=== PATIENT | female | born 1965 | race African-American/Black ===

== ENCOUNTER → 2016-02-19 | Outpatient (CLI) | payer OTHER ==
[~2016-02-19] MED LIST: ALLERGY10 M1 PO; ASPIRIN EC81 M1 PO; CARVEDILOL12.5 MG PO; CLARITIN10 MG PO; COREG CR80 MG PO; COZAAR 50 MG TA50 M1 PO; COZAAR100 MG PO; CRESTOR40 MG PO; CRESTOR5 MG PO; FELODIPINE ER10 MG PO; FISH OIL 1,0001 EAC5 PO; FLAXSEED OIL1000 MG PO; FLONASE 0.05%50 MCG SPRAY; HYDROCODONE-APA1 TA1 PO; LANTUS SUBQ; LOPRESSOR 50 MG50 M1 PO; MICARDIS HCT 81 EAC1 PO; NEXIUM20 M1 PO; NOVOLOG100 UNIT/1 SQ; NOVOLOG100 UNIT/1 SUBQ; PRILOSEC OTC20 MG PO; PROMETHAZINE RECTAL; RENAL VITAMIN PO; RENVELA800 MG PO; ROCALTROL0.25 MCG PO; TOPROL XL50 MG PO; TRIPHROCAPS SOFT1 MG PO; TUMS PO; ULTRAM 50MG TAB50 MG PO; VITAMIN D 5050000 I1; ZOFRAN ODT4 MG PO; ZYRTEC10 M2 PO
== END ==
LOC: RAD 01:39
DX: R92.2 Inconclusive mammogram (principal)

== ENCOUNTER → 2017-04-07 | Outpatient (CLI) | payer OTHER ==
[~2017-04-07] MED LIST changes: +KEFLEX500 M1 PO; +NORCO 5-325 TA1 EACH PO; +ONDANSETRON HCL4 M2 PO
== END ==
LOC: RAD 10:28
DX: Z12.31 Encounter for screening mammogram for malignant neoplasm of breast (principal)

== ENCOUNTER → 2018-11-12 | Outpatient (CLI) | payer OTHER | LOC: RAD 11:13 | DX: Z12.31 Encounter for screening mammogram for malignant neoplasm of breast (principal) ==

== ENCOUNTER → 2019-12-23 | Outpatient (CLI) | payer OTHER | LOC: RAD 10:18 | PROVIDERS: ATTEND Internal Medicine | DX: Z12.31 Encounter for screening mammogram for malignant neoplasm of breast (principal) ==

== ENCOUNTER 2020-05-13 12:39 | Emergency (ER) | payer OTHER ==
[~2020-05-13] VITALS: Ht 165.1 cm; Wt 98.4 kg
[2020-05-13 13:30] LABS: CALCIUM 8.3 mg/dL (8.5-10.1); CREATININE 6.3 mg/dL (0.6-1.0)
[2020-05-13 13:31] LABS: POTASSIUM 4.3 mmol/L (3.5-5.1)
[2020-05-13 13:49] LABS: ABSOLUTE NEUTROPHILS 2.7 thou/uL (1.4-8.2); BASOPHILS 0.9 % (0.0-2.0); HEMATOCRIT 35.6 % (37.0-47.0); HEMOGLOBIN 11.7 gm/dL (12.0-15.0); LYMPHOCYTES 21.8 % (24.0-44.0); MCHC 32.8 g/dL (28.0-37.0); MCV 94.7 fL (80.0-100.0); MONOCYTES 9.7 % (1.0-8.0); PLATELET COUNT 157 thou/uL (150-400); POLYS 67.6 % (36.0-66.0); RBC 3.76 mil/uL (4.20-5.00); RDW 19.3 % (10.5-14.5); WBC 3.9 thou/uL (4.0-11.0)
[2020-05-13] MEDS ORDERED: NORVASC10 MG PO (14:36)
[2020-05-13] MEDS ORDERED: ONDANSETRON HCL4 M2 PO (15:05)
[2020-05-13 15:15] VITALS: BP 142/64
== END 2020-05-13 15:15 | disposition home or self-care (01) ==
LOC: ER 12:39
PROVIDERS: Nurse Practitioner
DX: U07.1 COVID-19 (principal); R11.2 Nausea with vomiting, unspecified; M54.2 Cervicalgia; M54.9 Dorsalgia, unspecified; R51.9 Headache, unspecified; K21.9 Gastro-esophageal reflux disease without esophagitis; E11.22 Type 2 diabetes mellitus with diabetic chronic kidney disease; I12.0 Hypertensive chronic kidney disease with stage 5 chronic kidney disease or end stage renal disease; N18.6 End stage renal disease; Z79.4 Long term (current) use of insulin; Z90.710 Acquired absence of both cervix and uterus; Z79.899 Other long term (current) drug therapy; Z79.82 Long term (current) use of aspirin; Z87.891 Personal history of nicotine dependence; Z88.8 Allergy status to other drugs, medicaments and biological substances

== ENCOUNTER 2020-05-18 05:27 | Emergency (ER) | payer OTHER ==
[~2020-05-18] VITALS: Ht 165.1 cm; Wt 98.9 kg
[~2020-05-18 05:27] MED LIST changes: +NORVASC10 MG PO
[2020-05-18 06:08] LABS: ABSOLUTE NEUTROPHILS 6.4 thou/uL (1.4-8.2); BASOPHILS 0.4 % (0.0-2.0); HEMATOCRIT 32.8 % (37.0-47.0); HEMOGLOBIN 10.6 gm/dL (12.0-15.0); LYMPHOCYTES 16.9 % (24.0-44.0); MCHC 32.4 g/dL (28.0-37.0); MCV 92.8 fL (80.0-100.0); MONOCYTES 6.2 % (1.0-8.0); PLATELET COUNT 207 thou/uL (150-400); POLYS 76.5 % (36.0-66.0); RBC 3.54 mil/uL (4.20-5.00); RDW 19.4 % (10.5-14.5); WBC 8.4 thou/uL (4.0-11.0)
[2020-05-18 06:12] LABS: ANION GAP 15 mmol/L (7-16); BUN 59 mg/dL (7-18); CALCIUM 7.1 mg/dL (8.5-10.1); CHLORIDE 95 mmol/L (98-107); CO2 25 mmol/L (21-32); CREATININE 13.1 mg/dL (0.6-1.0); GLUCOSE 122 mg/dL (74-106); POTASSIUM 4.1 mmol/L (3.5-5.1); SODIUM 135 mmol/L (136-145)
[2020-05-18 06:22] LABS: ALBUMIN 2.9 g/dL (3.4-5.0); LIPASE 412 U/L (73-393); SGOT 35 U/L (15-37); SGPT 31 U/L (14-59); TOTAL BILIRUBIN 0.6 mg/dL (0.2-1.0); TOTAL PROTEIN 7.7 g/dL (6.4-8.2); TROPONIN-I <0.06 ng/mL (<0.06)
[2020-05-18 06:28] LABS: APTT 34.2 Seconds (24.5-32.8); D-DIMER 1.07 ug/mLFEU (0.19-0.50); INR 0.98; PROTIME 10.7 Seconds (9.3-11.4)
--- NOTE | 2020-05-18 07:03 | EKG ---
[address] [place] [address] ELECTROCARDIOGRAM REPORT Name: NGOZI ARDON Room #: PRE M.R.#: [id number] Admission: Attend Phys: Discharge: Date of : 63 Report #: [id number] [facility] ED Test Date: 2020-05-18 Test Time: 05:43:11 Pat Name: NGOZI ARDON Department: Room: Gender: F Building [employer] Professor: MPAJAIME : 1965 Requested By: Skyler Williamson Order Number: [id number] MD: Marcos De Oliveira Measurements Intervals [place] Rate: 77 P: 44 TX: 199 QRS: -21 QRSD: 84 T: 37 QT: 404 QTc: 458 Interpretive Statements Sinus rhythm Left ventricular hypertrophy Baseline wander in lead(s) II,III,aVF,V3 Compared to ECG 09/12/2017 19:59:46 First degree AV block no longer present Electronically Signed On 05-18-2020 7:03:04 CDT by Marcos De Oliveira [email or web address] <ELECTRONICALLY SIGNED> By: Marcos De Oliveira MD, [facility] 05/18/20 [id number] [id number] 2 Marcos De Oliveira MD, FAC /EPI
[2020-05-18 09:15] VITALS: BP 135/78
[2020-05-18] MEDS ORDERED: ZOFRAN ODT4 MG PO (09:26)
== END 2020-05-18 09:24 | disposition home or self-care (01) ==
LOC: ER 05:27
PROVIDERS: Emergency Medicine
DX: U07.1 COVID-19 (principal); R06.00 Dyspnea, unspecified; R11.10 Vomiting, unspecified; I12.0 Hypertensive chronic kidney disease with stage 5 chronic kidney disease or end stage renal disease; E11.22 Type 2 diabetes mellitus with diabetic chronic kidney disease; N18.6 End stage renal disease; K21.9 Gastro-esophageal reflux disease without esophagitis; Z79.82 Long term (current) use of aspirin; Z99.2 Dependence on renal dialysis; Z79.899 Other long term (current) drug therapy; Z87.891 Personal history of nicotine dependence

== ENCOUNTER 2020-05-19 06:18 | Emergency (ER) | payer OTHER ==
[~2020-05-19] VITALS: Ht 165.1 cm; Wt 98.4 kg
[2020-05-19 08:34] LABS: CALCIUM 7.2 mg/dL (8.5-10.1); POTASSIUM 3.7 mmol/L (3.5-5.1)
[2020-05-19 08:46] LABS: CREATININE 11.1 mg/dL (0.6-1.0)
[2020-05-19 12:00] VITALS: BP 184/72
== END 2020-05-19 12:00 | disposition home or self-care (01) ==
LOC: ER 06:18
PROVIDERS: Emergency Medicine
DX: U07.1 COVID-19 (principal); K21.9 Gastro-esophageal reflux disease without esophagitis; E11.22 Type 2 diabetes mellitus with diabetic chronic kidney disease; I12.0 Hypertensive chronic kidney disease with stage 5 chronic kidney disease or end stage renal disease; N18.6 End stage renal disease; Z79.899 Other long term (current) drug therapy; Z90.710 Acquired absence of both cervix and uterus; Z79.82 Long term (current) use of aspirin; Z79.4 Long term (current) use of insulin; Z87.891 Personal history of nicotine dependence; Z88.8 Allergy status to other drugs, medicaments and biological substances

== ENCOUNTER → 2021-01-24 | Outpatient (CLI) | payer OTHER | LOC: BC 09:15 | PROVIDERS: ATTEND Internal Medicine | DX: Z12.31 Encounter for screening mammogram for malignant neoplasm of breast (principal); N64.89 Other specified disorders of breast ==